=== PATIENT | male | born 1950 | race African-American/Black ===

== ENCOUNTER 2020-03-10 11:11 | Inpatient (IN) | payer MEDICARE, MEDICAID ==
[~2020-03-10] VITALS: Ht 180.3 cm; Wt 79.6 kg
[~2020-03-10 11:11] MED LIST: AMLO10TA13; ASPI81CH43; BENA5TAB5; DIVA500T53; EFAV600T; HYDR10TA35; QUET100T46; [UNRECOGNIZED DRUG - CODE] OR
[2020-03-10] MEDS ORDERED: SODIUM CHLORIDE 0.9% 500 ML IVB ONE (11:19)
[2020-03-10 12:31] LABS: Albumin 3.2 g/dL (3.4-5.0); Anion Gap 9 (5-15); Blood Urea Nitrogen 28 mg/dL (7-18); Calcium 9.3 mg/dL (8.5-10.1); Carbon Dioxide 27 mmol/L (21-32); Chloride 101 mmol/L (98-107); Glucose 118 mg/dL (74-106); Magnesium 2.1 mg/dL (1.6-2.6); Sodium 137 mmol/L (136-145)
[2020-03-10 12:39] LABS: Alanine Aminotransferase 84 U/L (16-61); Alkaline Phosphatase 178 U/L (45-117); Aspartate Aminotransferase 49 U/L (15-37); BUN/Creatinine Ratio 12.8; Bilirubin, Total 7.6 mg/dL (0.2-1.0); GFR African American 39 mL/min; GFR Non-African American 32 mL/min; Lipase 4472 U/L (73-393); Total Protein 8.3 g/dL (6.4-8.2)
[2020-03-10 12:52] LABS: Basophils # (auto) 0 10 ^3/uL (0-0.2); Eosinophils # (auto) 0.1 10 ^3/uL (0-0.8); Nucleated Red Blood Cells % 0.1 %
[2020-03-10 12:53] LABS: Basophils % (auto) 0.1 % (0.0-2.0); Eosinophils % (auto) 0.9 % (0.0-7.0); Lymphocytes % (auto) 7.5 % (10.0-50.0); Mean Corpuscular Hemoglobin 39.1 pg (28.0-32.0); Mean Corpuscular Hgb Conc. 34.9 g/dL (32.0-36.0); Monocytes # (auto) 0.6 10 ^3/uL (0-1.3); Monocytes % (auto) 4.6 % (0.0-12.0); Neutrophils # (auto) 11.6 10 ^3/uL (1.6-8.6); Neutrophils % (auto) 86.9 % (37.0-80.0); Platelet Count (auto) 250 10^3/uL (140-450); Red Blood Cells 4.11 10^6/uL (4.5-5.90); Red Cell Distribution Width 13.5 % (11.8-14.3); White Blood Cell 13.4 10^3/uL (4.4-10.8)
[2020-03-10 13:12] LABS: Potassium 2.7 mmol/L (3.5-5.1)
[2020-03-10] MEDS ORDERED: POTASSIUM CHL 20MEQ/100ML 100 ML IV ONE ×3 (13:15→15:30)
[2020-03-10] MEDS ORDERED: NITROGLYCERIN 0.4 MG SL TAB SL PRN ×2 (13:45→15:00)
[2020-03-10] MEDS ORDERED: POTASSIUM CHL 20 Meq TABLET PO ONE ×2 (13:45)
[2020-03-10] MEDS ORDERED: MORPHINE SULF INJ 2 MG/ML SYRINGE 1ML IV PRN ×3 (13:45→15:00)
[2020-03-10] MEDS ORDERED: ONDANSETRON HCL 4 MG/2 ML VIAL IV ONE (14:45)
[2020-03-10] MEDS ORDERED: ALUM & MAG HYDROX-SIMETH LIQ(MAALOX) 30 ML PO PRN (15:00)
[2020-03-10] MEDS ORDERED: HYDROcodone-ACET 5/325MG TAB PO PRN (15:00)
[2020-03-10] MEDS ORDERED: DOCUSATE SOD 100 MG CAP PO PRN (15:00)
[2020-03-10] MEDS ORDERED: LORazepam 0.5 MG TAB PO PRN (15:00)
[2020-03-10] MEDS ORDERED: PHE100C PO (15:29)
[2020-03-10] MEDS ORDERED: ONDA-144 PO (15:29)
[2020-03-10] MEDS ORDERED: HYDR25TA4 PO (15:47)
[2020-03-10] MEDS ORDERED: CHOL20007 PO (15:57)
[2020-03-10] MEDS ORDERED: ASCO500T11 PO (15:57)
[2020-03-10] MEDS ORDERED: POTA10TA51 PO (15:57)
[2020-03-10 16:24] LABS: Cholesterol 126 mg/dL (< 200)
[2020-03-10 16:27] LABS: HDL Cholesterol 20 mg/dL (40-59); LDL Cholesterol 62 mg/dL (< 100); Triglycerides 192 mg/dL (< 150)
[2020-03-10 16:57] VITALS: BP 106/75
[2020-03-10] MEDS: D5W/SOD CHL 0.9%/KCL 40MEQ 1,000 ML IV SCH ×2 (19:00→23:31)
[2020-03-10] MEDS: ONDANSETRON HCL 4 MG/2 ML VIAL IV PRN (20:43)
[2020-03-10 22:00] VITALS: BP 113/72
[2020-03-11] MEDS ORDERED: PANTOPRAZOLE 40 MG/10 ML VIAL INJ IV ONE (01:15)
[2020-03-11 05:00] VITALS: BP 124/68
[2020-03-11] MEDS: D5W/SOD CHL 0.9%/KCL 40MEQ 1,000 ML IV SCH ×2 (06:11→14:45)
[2020-03-11] MEDS: metroNIDAZOLE 500MG/100ML 100 ML IV SCH ×2 (06:11→14:58)
[2020-03-11] MEDS: ONDANSETRON HCL 4 MG/2 ML VIAL IV PRN (06:32)
[2020-03-11 06:46] LABS: Urine Bacteria NONE SEEN /hpf (None Seen); Urine Blood 1+ /uL (Negative); Urine Specific Gravity 1.014 (1.001-1.035); Urine WBC 2 /hpf (0 - 3)
[2020-03-11 07:10] LABS: Eosinophils # (auto) 0.3 10 ^3/uL (0-0.8); Lymphocytes # (auto) 1.7 10 ^3/uL (0.4-5.4); Mean Corpuscular Hemoglobin 38.8 pg (28.0-32.0)
[2020-03-11 07:12] LABS: Basophils # (auto) 0.1 10 ^3/uL (0-0.2); Basophils % (auto) 0.7 % (0.0-2.0); Eosinophils % (auto) 2.7 % (0.0-7.0); Hematocrit 45.3 % (41.0-53.0); Hemoglobin 15.7 g/dL (13.5-17.5); Lymphocytes % (auto) 16.2 % (10.0-50.0); Mean Corpuscular Hgb Conc. 34.7 g/dL (32.0-36.0); Mean Corpuscular Volume 111.9 fL (80.0-100.0); Monocytes # (auto) 0.5 10 ^3/uL (0-1.3); Monocytes % (auto) 5.1 % (0.0-12.0); Neutrophils # (auto) 7.8 10 ^3/uL (1.6-8.6); Neutrophils % (auto) 75.3 % (37.0-80.0); Platelet Count (auto) 250 10^3/uL (140-450); Red Blood Cells 4.05 10^6/uL (4.5-5.90); Red Cell Distribution Width 13.7 % (11.8-14.3); White Blood Cell 10.4 10^3/uL (4.4-10.8)
[2020-03-11 07:13] LABS: Amphetamine Screen, Urine NEGATIVE (NEGATIVE); Barbiturate Scree,Urine NEGATIVE (NEGATIVE); Benzodiazephine Screen, Urine NEGATIVE (NEGATIVE); Cannabinoid Screen, Urine NEGATIVE (NEGATIVE); Cocaine Screen, Urine NEGATIVE (NEGATIVE); Opiate Scree,Urine NEGATIVE (NEGATIVE); Phencyclidine Screen, Urine NEGATIVE (NEGATIVE)
[2020-03-11 07:20] LABS: Alcohol, Urine < 3.0 mg/dL (0-10)
[2020-03-11 07:31] LABS: Potassium 3.2 mmol/L (3.5-5.1)
[2020-03-11 07:38] LABS: Albumin 2.8 g/dL (3.4-5.0); BUN/Creatinine Ratio 20.1; Bilirubin, Total 6.4 mg/dL (0.2-1.0); Calcium 8.7 mg/dL (8.5-10.1); Magnesium 2.4 mg/dL (1.6-2.6); Phosphorus 1.3 mg/dL (2.5-4.90); Total Protein 7.9 g/dL (6.4-8.2)
[2020-03-11 08:00] VITALS: BP 119/74
[2020-03-11 08:09] LABS: INR 1.12 (0.9-1.15)
[2020-03-11 09:00] VITALS: BP 119/74
[2020-03-11] MEDS ORDERED: cefTRIAXone 1GM/50ML D5W 50 ML IV SCH (09:00)
[2020-03-11] MEDS ORDERED: PANTOPRAZOLE 40 MG/10 ML VIAL INJ IV SCH (10:00)
[2020-03-11] MEDS ORDERED: POTASSIUM CHL 20 Meq TABLET PO SCH (10:00)
[2020-03-11] MEDS ORDERED: ENOXAPARIN SOD 40 MG/0.4 ML SYRINGE SC SCH (10:00)
== END 2020-03-11 16:50 | disposition left against medical advice (07) | DRG 871 ==
LOC: ER 11:11 → TELE 11:12 → TELE-CENTR 15:03
PROVIDERS: ADMIT Hospitalist; ATTEND Family Medicine
DX: A41.9 Sepsis, unspecified organism (principal); K85.10 Biliary acute pancreatitis without necrosis or infection; N17.0 Acute kidney failure with tubular necrosis; K80.62 Calculus of gallbladder and bile duct with acute cholecystitis without obstruction; E87.6 Hypokalemia; N18.3 Chronic kidney disease, stage 3 (moderate); R73.9 Hyperglycemia, unspecified; K59.04 Chronic idiopathic constipation; F17.210 Nicotine dependence, cigarettes, uncomplicated; R59.0 Localized enlarged lymph nodes; Z53.29 Procedure and treatment not carried out because of patient's decision for other reasons; I12.9 Hypertensive chronic kidney disease with stage 1 through stage 4 chronic kidney disease, or unspecified chronic kidney disease; N20.0 Calculus of kidney; Z79.82 Long term (current) use of aspirin; Z79.899 Other long term (current) drug therapy; Z86.73 Personal history of transient ischemic attack (TIA), and cerebral infarction without residual deficits
CPT/HCPCS: 36415; 74176; 74181; 76705; 80053; 80061; 80307; 81001; 83036; 83690; 83735; 84100; 84484; 85025; 85610; 85730; 86850; 86900; 86901; 87040; 87086; 93005; 96365; 96375; C9113; G0378; J0696; J2405; J3480; J3490

== ENCOUNTER 2020-03-12 15:11 | Inpatient (IN) | payer MEDICARE, OTHER ==
[~2020-03-12] VITALS: Ht 181.6 cm; Wt 83.9 kg
[~2020-03-12 15:11] MED LIST changes: +ASCO500T11 PO; -BENA5TAB5; +CHOL20007 PO; -DIVA500T53; -EFAV600T; -HYDR10TA35; +HYDR25TA4 PO; +PHE100C PO; +POTA10TA51 PO; -QUET100T46; -[UNRECOGNIZED DRUG - CODE] OR
[2020-03-12 16:07] LABS: Basophils # (auto) 0 10 ^3/uL (0-0.2); Lymphocytes # (auto) 1.2 10 ^3/uL (0.4-5.4); Neutrophils # (auto) 3.8 10 ^3/uL (1.6-8.6)
[2020-03-12 16:09] LABS: Basophils % (auto) 0.6 % (0.0-2.0); Eosinophils # (auto) 0.3 10 ^3/uL (0-0.8); Eosinophils % (auto) 4.7 % (0.0-7.0); Hematocrit 40.3 % (41.0-53.0); Hemoglobin 14.2 g/dL (13.5-17.5); Lymphocytes % (auto) 21.1 % (10.0-50.0); Mean Corpuscular Hemoglobin 39.6 pg (28.0-32.0); Mean Corpuscular Hgb Conc. 35.3 g/dL (32.0-36.0); Monocytes # (auto) 0.4 10 ^3/uL (0-1.3); Monocytes % (auto) 7.4 % (0.0-12.0); Neutrophils % (auto) 66.2 % (37.0-80.0); Nucleated Red Blood Cells % 0.1 %; Platelet Count (auto) 256 10^3/uL (140-450); Red Cell Distribution Width 13.7 % (11.8-14.3); White Blood Cell 5.7 10^3/uL (4.4-10.8)
[2020-03-12 16:23] LABS: Albumin 2.6 g/dL (3.4-5.0); BUN/Creatinine Ratio 18.1; Potassium 3.1 mmol/L (3.5-5.1)
[2020-03-12 16:26] LABS: Bilirubin, Total 3.4 mg/dL (0.2-1.0); Total Protein 7.5 g/dL (6.4-8.2)
[2020-03-12] MEDS ORDERED: SODIUM CHLORIDE 0.9% 1,000 ML IVB ONE (17:27)
[2020-03-12] MEDS ORDERED: ONDANSETRON HCL 4 MG/2 ML VIAL IV ONE (17:30)
[2020-03-12 19:10] LABS: INR 1.01 (0.9-1.15); Partial Thromboplastin Time 28.1 sec (23.64-32.05)
[2020-03-12] MEDS ORDERED: cefTRIAXone 1GM/50ML D5W 50 ML IV ONE (20:00)
[2020-03-12] MEDS: POTASSIUM CHL 20MEQ/100ML 100 ML IV SCH ×2 (20:00→22:00)
[2020-03-12] MEDS: D5W 5% 1,000 ML IV SCH (20:12)
[2020-03-12] MEDS ORDERED: DEXTROSE (50%) 50ML SYRG IV PRN (20:15)
[2020-03-12] MEDS ORDERED: ACETAMINOPHEN 325 MG TAB PO PRN (20:15)
[2020-03-12] MEDS ORDERED: DOCUSATE SOD 100 MG CAP PO PRN (20:15)
[2020-03-12 22:33] VITALS: BP 142/81
--- NOTE | 2020-03-12 22:33 | NUR ---
MS admit from ER Patient admitted to tele/MS. Patient oriented to primary RN, unit, room, bed, and unit policies regarding patient care and visiting hours. Patient weighed by bedscale and encouraged to call if they need something. All questions and concerns addressed, patient verbalized understanding. Safety precautions maintained bed is in lowest position and locked, bed rails 2x. Call light and bedside table are within reach. Note: []
[2020-03-12 23:04] VITALS: BP 142/81
[2020-03-12] MEDS: HYDROcodone-ACET 5/325MG TAB PO PRN (23:09)
[2020-03-12] MEDS: PHENYTOIN SODIUM 100 MG CAP PO SCH (23:10)
--- NOTE | 2020-03-12 23:21 | NUR ---
Called Hospitalist Informed that patient refused 40 meq K rider IV and current K level is 3.1, New orders received, orders read back and will carry out. Will continue to monitor patient Q1 and PRN.
[2020-03-12] MEDS ORDERED: POTASSIUM CHL 20 Meq TABLET PO ONE (23:30)
[2020-03-12] MEDS: ACCU-CHEK COMFORT CURVE STRIP VI SCH (23:55)
[2020-03-12] MEDS: metroNIDAZOLE 500MG/100ML 100 ML IV SCH (23:55)
[2020-03-13] MEDS: TEMAZEPAM 15 MG CAP PO PRN (01:35)
[2020-03-13] MEDS: ONDANSETRON HCL 4 MG/2 ML VIAL IV PRN ×2 (01:35→23:05)
[2020-03-13] MEDS: MORPHINE SULF INJ 2 MG/ML SYRINGE 1ML IV PRN ×3 (04:18→22:38)
[2020-03-13 05:00] VITALS: BP 148/96
[2020-03-13] MEDS: InsuLIN REG 1unit/0.01ml Soln (100units/ml) SC SCH ×4 (06:00→17:47)
[2020-03-13] MEDS: ACCU-CHEK COMFORT CURVE STRIP VI SCH ×3 (06:00→17:47)
[2020-03-13] MEDS ORDERED: MAGN400C2 PO (06:04)
[2020-03-13] MEDS: PHENYTOIN SODIUM 100 MG CAP PO SCH ×3 (06:38→22:08)
[2020-03-13] MEDS: metroNIDAZOLE 500MG/100ML 100 ML IV SCH ×3 (06:38→17:35)
[2020-03-13 06:41] LABS: Basophils # (auto) 0 10 ^3/uL (0-0.2); Hematocrit 42.2 % (41.0-53.0); Lymphocytes # (auto) 1.7 10 ^3/uL (0.4-5.4); Mean Corpuscular Hgb Conc. 34.7 g/dL (32.0-36.0)
[2020-03-13 06:44] LABS: Basophils % (auto) 0.7 % (0.0-2.0); Eosinophils # (auto) 0.2 10 ^3/uL (0-0.8); Eosinophils % (auto) 3.7 % (0.0-7.0); Hemoglobin 14.6 g/dL (13.5-17.5); Mean Corpuscular Hemoglobin 39.2 pg (28.0-32.0); Mean Corpuscular Volume 113.2 fL (80.0-100.0); Monocytes # (auto) 0.6 10 ^3/uL (0-1.3); Monocytes % (auto) 9.3 % (0.0-12.0); Neutrophils # (auto) 3.8 10 ^3/uL (1.6-8.6); Neutrophils % (auto) 60.3 % (37.0-80.0); Nucleated Red Blood Cells % 0.1 %; Platelet Count (auto) 264 10^3/uL (140-450); Red Blood Cells 3.73 10^6/uL (4.5-5.90); Red Cell Distribution Width 13.7 % (11.8-14.3); White Blood Cell 6.3 10^3/uL (4.4-10.8)
[2020-03-13 07:03] LABS: Potassium 3.2 mmol/L (3.5-5.1)
[2020-03-13 07:12] LABS: BUN/Creatinine Ratio 16.5; Calcium 8.6 mg/dL (8.5-10.1)
--- NOTE | 2020-03-13 07:18 | NUR ---
End of Shift Note Endorsed care to dayshift RN. At this time patient has no s/s of distress or SOB.
--- NOTE | 2020-03-13 07:20 | NUR ---
Opening Shift Note Assumed care of patient, awake and alert. No S/S of distress/SOB. Patient reporting lower abdominal discomfort. Pain management options discussed with patient. Will medicate as appropriate. Bed is low, locked with 2x side rails up. Call light is within reach. Instructed on POC and to call for assist PRN, will continue to monitor for changes Q1hr and PRN.
--- NOTE | 2020-03-13 07:53 | NUR ---
Ambulating Patient ambulating in hallway with steady gait. Patient has IV antibiotics running at this time. Will continue to monitor.
[2020-03-13 09:00] VITALS: BP 114/81
--- NOTE | 2020-03-13 09:00 | NUR ---
Family update Password verified. Spoke to Ignacia and updated her on current POC. All questions have been answered.
[2020-03-13] MEDS ORDERED: HCTZ 25 MG TAB PO SCH (10:00)
[2020-03-13] MEDS ORDERED: POTASSIUM CHL 10 Meq TABLET PO SCH (10:00)
[2020-03-13] MEDS ORDERED: CHOLECALCIFEROL (VITD3) 1,000IU=25mCg TAB PO SCH (10:00)
[2020-03-13] MEDS ORDERED: ASCORBIC ACID 500 MG TAB PO SCH (10:00)
[2020-03-13] MEDS ORDERED: cefTRIAXone 1GM/50ML D5W 50 ML IV SCH (10:00)
[2020-03-13] MEDS ORDERED: ASPirin 81 mg TAB PO SCH (10:00)
--- NOTE | 2020-03-13 10:10 | NUR ---
Spoke with family Password verified by sister Serina. Provided update and all questions have been answered.
--- NOTE | 2020-03-13 11:20 | NUR ---
NPO status Patient walking to central nursing station and asking staff members for food. This nurse spoke to the patient and family regarding NPO status and reasoning for it. Patient is very upset stating that he will leave AMA if he is cannot eat something. Spoke with Dr. Sutherland regarding patient wanting to have something to eat and per MD patient is to stay NPO due to abnormal lab values/pancreatitis. This nurse once again advised patient of doctors orders. Patient still continues to ask staff members for food. Will continue to monitor.
[2020-03-13] MEDS: D5W 5% 1,000 ML IV SCH (12:52)
[2020-03-13 13:00] VITALS: BP 148/97
--- NOTE | 2020-03-13 13:10 | NUR ---
Dr. Sutherland Rounding Dr. Sutherland at bedside updating patient on POC. Per Dr. Sutherland the patient may have ice chips. Will continue to monitor. Addendum: 03/13/20 at 1336 by Lisa Archuleta RN RN MD Sutherland is also aware of Potassium: 3.2 No new orders received.
[2020-03-13] MEDS ORDERED: hydrALAZINE HCL 20 MG/ML VL IV PRN (13:15)
[2020-03-13 17:00] VITALS: BP 143/101
--- NOTE | 2020-03-13 19:25 | NUR ---
Opening Shift Note Assumed care of patient. Patient is awake, alert, and oriented X 4. No S/S of respiratory distress noted. Respirations are regular, non-labored. No pain, nausea, or vomiting reported. Pt is on RA. IV is intact and patent. Bed in lowest possible position, brakes locked, side rails up X 2, call light within reach. POC discussed with the patient. Patient instructed to call for assistance PRN. Will continue to monitor for changes Q1hr and PRN.
[2020-03-13 19:31] LABS: BUN/Creatinine Ratio 15.7; Calcium 8.9 mg/dL (8.5-10.1); Potassium 3.3 mmol/L (3.5-5.1)
[2020-03-13 20:00] VITALS: BP 140/87
[2020-03-13 22:00] VITALS: BP_SYST 140; BP_SYST 143; BP_DIAS 101; BP_DIAS 87
[2020-03-13 22:08] LABS: Urine WBC None Seen /hpf (0 - 3)
[2020-03-13 22:45] LABS: Urine Bacteria NONE SEEN /hpf (None Seen); Urine Blood Negative /uL (Negative); Urine Specific Gravity 1.015 (1.001-1.035)
[2020-03-13 22:49] LABS: Alcohol, Urine < 3.0 mg/dL (0-10); Amphetamine Screen, Urine NEGATIVE (NEGATIVE); Barbiturate Scree,Urine NEGATIVE (NEGATIVE); Benzodiazephine Screen, Urine NEGATIVE (NEGATIVE); Cannabinoid Screen, Urine NEGATIVE (NEGATIVE); Cocaine Screen, Urine NEGATIVE (NEGATIVE); Opiate Scree,Urine NEGATIVE (NEGATIVE); Phencyclidine Screen, Urine NEGATIVE (NEGATIVE)
[2020-03-14] MEDS: ACCU-CHEK COMFORT CURVE STRIP VI SCH ×2 (00:08→05:45)
[2020-03-14] MEDS: metroNIDAZOLE 500MG/100ML 100 ML IV SCH ×2 (00:13→05:48)
[2020-03-14] MEDS: HYDROcodone-ACET 5/325MG TAB PO PRN (00:39)
[2020-03-14] MEDS: TEMAZEPAM 15 MG CAP PO PRN (01:48)
--- NOTE | 2020-03-14 02:30 | NUR ---
Chlorhexidine bath given to patient.
[2020-03-14 05:00] VITALS: BP 152/84
[2020-03-14] MEDS: InsuLIN REG 1unit/0.01ml Soln (100units/ml) SC SCH ×2 (05:46)
[2020-03-14] MEDS: D5W 5% 1,000 ML IV SCH (05:46)
[2020-03-14] MEDS: PHENYTOIN SODIUM 100 MG CAP PO SCH (05:48)
[2020-03-14 08:00] VITALS: BP 133/99
--- NOTE | 2020-03-14 08:30 | NUR ---
PATIENT TAKEN TO PRE OP FOR SCHEDULED PROCEDURE WITH MD ANDRADE. HAND OFF GIVEN TO MARIE MARTIN.
[2020-03-14] MEDS ORDERED: ceFAZolin 1GM/50ML 50 ML IV ONE (08:36)
[2020-03-14] MEDS ORDERED: POVIDONE IODINE 10 % TOPICAL OINT 30GM TOP ONE (08:47)
--- NOTE | 2020-03-14 09:10 | NUR ---
PATIENT BACK IN ROOM, PER FILTER TANK TENDER HELPER HEAD MINDA, PATIENT REFUSED PROCEDURE STATING " I JUST WANNA EAT AND LEAVE." PER RN, ANESTHESIOLOGIST AND SURGEON WERE AT BEDSIDE.
--- NOTE | 2020-03-14 09:15 | NUR ---
ATTEMPTED TO CALL [facility] TO MANAGER ICU PATIENT D/T AMA WISHES. CALL TO [phone] AND [phone] WITHOUT SUCCESS. PATIENT STATES, "ILL BE FINE, ILL FIGURE IT OUT." PATIENT WISHES TO PROCEED WITH AMA WITHOUT FAMILY TO MANAGER ICU PATIENT.
--- NOTE | 2020-03-14 09:24 | NUR ---
AMA Note [facility] states they want to leave the hospital Against Medical Advice (AMA). Patient encouraged to stay for further treatment/stabilization. MD Sutherland notified of patient's wishes. Patient advised of the risks and benefits of leaving AMA. Patient verbalized understanding. Patient encouraged to return to the ER if symptoms do not improve or worsen.
== END 2020-03-14 09:24 | disposition left against medical advice (07) | DRG 444 ==
LOC: ER 15:11 → OVERFLOW 15:12 → WEST WING 22:28
PROVIDERS: ADMIT Hospitalist; ATTEND Internal Medicine
DX: K80.00 Calculus of gallbladder with acute cholecystitis without obstruction (principal); K85.90 Acute pancreatitis without necrosis or infection, unspecified; N17.0 Acute kidney failure with tubular necrosis; R65.11 Systemic inflammatory response syndrome (SIRS) of non-infectious origin with acute organ dysfunction; E44.0 Moderate protein-calorie malnutrition; N18.9 Chronic kidney disease, unspecified; E78.5 Hyperlipidemia, unspecified; I12.9 Hypertensive chronic kidney disease with stage 1 through stage 4 chronic kidney disease, or unspecified chronic kidney disease; F41.9 Anxiety disorder, unspecified; F17.210 Nicotine dependence, cigarettes, uncomplicated; E87.6 Hypokalemia; Z68.25 Body mass index [BMI] 25.0-25.9, adult; Z82.49 Family history of ischemic heart disease and other diseases of the circulatory system; Z86.73 Personal history of transient ischemic attack (TIA), and cerebral infarction without residual deficits; Z53.29 Procedure and treatment not carried out because of patient's decision for other reasons
CPT/HCPCS: 36415; 71045; 74176; 80048; 80053; 80061; 80307; 81001; 82150; 82962; 83690; 83735; 85025; 85610; 85730; 86850; 86900; 86901; 87081; G0378; J0690; J0696; J2405; J3480; J3490